=== PATIENT | female | born 1995 | race Caucasian/White ===

== ENCOUNTER 2020-10-13 09:54 | Inpatient (IN) | payer OTHER ==
[2020-10-13] VITALS (30 sets, daily range): BP systolic 95–135; BP diastolic 57–98
[~2020-10-13] VITALS: Ht 160 cm; Wt 87.6 kg
[2020-10-13] MEDS ORDERED: PRENTAB9 PO (10:16)
[2020-10-13] MEDS ORDERED: ADV500INH INH (10:16)
[2020-10-13] MEDS ORDERED: ALBU83IN NEB (10:16)
[2020-10-13] MEDS ORDERED: [UNRECOGNIZED DRUG - OTHER] PO (10:16)
[2020-10-13] MEDS ORDERED: PENICILLIN G POTASSIUM IV 5 MU in D5W MINI-BAG PLUS 100 ML IV STA (11:01)
[2020-10-13] MEDS ORDERED: LACTATED RINGER'S 1000 ML IV STA (11:01)
[2020-10-13] MEDS ORDERED: OXYTOCIN DRIP 30 UNITS in IV 1 EA IV PRN (11:05)
[2020-10-13] MEDS ORDERED: LIDOCAINE 1% MDV 20ML VIAL INFIL PRN (11:05)
[2020-10-13] MEDS ORDERED: ONDANSETRON 4MG/2ML VIAL IV PRN ×2 (11:05→20:55)
[2020-10-13] MEDS ORDERED: METHYLERGONOVINE MALEATE 0.2 MG/ML VIAL (J2210) IM PRN (11:05)
[2020-10-13] MEDS ORDERED: diphenhydrAMINE 50MG CAP PO PRN (11:05)
[2020-10-13] MEDS ORDERED: DOCUSATE SODIUM 100MG CAPSULE PO PRN ×2 (11:05→22:50)
[2020-10-13] MEDS ORDERED: OXYTOCIN INJ 10 UNITS/ML VIAL (J2590) IM PRN (11:05)
[2020-10-13] MEDS ORDERED: BETAMETHASONE SOLUSPAN 6MG/ML 5ML VIAL (J0702 PER 3MG) IM SCH (12:00)
[2020-10-13 12:28] LABS: HEMOGLOBIN 10.5 g/dl (12.0-15.5); MEAN CORPUSCULAR HEMOGLOBIN 28.5 pg (27.0-33.0); MEAN CORPUSCULAR HGB CONC 32.8 g/dl (32.0-36.5); MEAN CORPUSCULAR VOLUME 86.7 fl (80.0-96.0); PLATELET COUNT, AUTOMATED 278 10^3/uL (150-450); RED BLOOD COUNT 3.69 10^6/uL (4.00-5.40)
[2020-10-13] MEDS: LR 1,000 ML IV SCH ×2 (12:59→19:59)
[2020-10-13 13:39] LABS: EOSINOPHILS 2 % (0-3); LYMPHOCYTES 13 % (16-44); METAMYELOCYTES 1 % (0-0); MONOCYTES 5 % (0-5); NEUTROPHILS 79 % (28-66); PLATELET ESTIMATE NORMAL (NORMAL)
[2020-10-13 13:53] LABS: APPEARANCE, URINE CLEAR (CLEAR); BACTERIA, URINE AUTO 1+ (NEGATIVE); BILIRUBIN, URINE AUTO NEGATIVE (NEGATIVE); BLOOD, URINE BLOOD 2+ (NEGATIVE); COLOR, URINE COLORLESS (YELLOW); GLUCOSE, URINE (UA) AUTO NEGATIVE (NEGATIVE); KETONE, URINE AUTO NEGATIVE (NEGATIVE); LEUKOCYTE ESTERASE, URINE AUTO NEGATIVE (NEGATIVE); MUCUS, URINE SMALL (NEGATIVE); NITRITE, URINE AUTO NEGATIVE (NEGATIVE); PROTEIN, URINE AUTO NEGATIVE (NEGATIVE); RBC, URINE AUTO 2 /HPF (0-3); SPECIFIC GRAVITY URINE AUTO 1.002 (1.002-1.035); SQUAMOUS EPITHELIAL CELL UR AU 0 /HPF (0-6); UROBILINOGEN, URINE AUTO 0.2 mg/dL (0.0-2.0); WBC, URINE AUTO 0 /HPF (0-3)
[2020-10-13] MEDS ORDERED: LR 1,000 ML IV SCH (14:50)
[2020-10-13] MEDS ORDERED: OXYTOCIN DRIP 30 UNITS in IV 1 EA IV SCH ×2 (14:50→22:50)
[2020-10-13] MEDS: PENICILLIN G POTASSIUM IV 2.5 MU in IV 1 EA IV SCH ×2 (15:46→20:00)
[2020-10-13] MEDS ORDERED: FENTANYL 2MCG/ML ROPIVACAINE 0.2% IN 0.9% NACL 100ML IVBAG As Ordered ONE (19:34)
[2020-10-13] MEDS ORDERED: FENTANYL/ROPIVACAINE/NACL BAG 100 ML EPIDURAL SCH (20:55)
[2020-10-13] MEDS ORDERED: ePHEDrine SULFATE 25 MG/5 ML(5MG/ML) SYRINGE IV PRN (20:55)
[2020-10-13] MEDS ORDERED: EPIDURAL/PCA KEYS XX PRN (20:55)
[2020-10-13] MEDS ORDERED: LACTATED RINGER'S 1000 ML IV PRN (20:55)
[2020-10-13] MEDS ORDERED: NALOXONE INJ 0.4MG/1ML VIAL (J2310 PER 1MG) IV PRN (20:55)
[2020-10-13] MEDS ORDERED: REFRIGERATOR IV KEYS XX PRN (20:55)
[2020-10-13] MEDS ORDERED: EPIDURAL COMMENT XX SCH (20:55)
[2020-10-13] MEDS ORDERED: diphenhydrAMINE 50MG/ML VIAL (J1200) IV PRN (20:55)
[2020-10-13] MEDS ORDERED: IBUPROFEN 600MG TAB PO PRN (22:50)
[2020-10-13] MEDS ORDERED: MEASLES,MUMPS,RUBELLA VACCINE INJ (MMR-II) (90707) SC SCH (22:50)
[2020-10-13] MEDS ORDERED: DIBUCAINE 1% OINTMENT 30GM TOP PRN (22:50)
[2020-10-13] MEDS ORDERED: RHOGAM 300 MCG (1500 IU) INJ (J2790) IM SCH (22:50)
[2020-10-13] MEDS ORDERED: METHYLERGONOVINE MALEATE 0.2 MG TAB PO PRN (22:50)
[2020-10-13] MEDS ORDERED: ACETAMINOPHEN TAB 650MG DOSE (2X325MG) PO PRN (22:50)
[2020-10-13] MEDS ORDERED: AMPICILLIN SOD/SULBACTAM SOD 3 GM in D5W MINI-BAG PLUS 100 ML IV ONE (22:55)
[2020-10-13] MEDS ORDERED: METHYLERGONOVINE MALEATE 0.2 MG/ML VIAL (J2210) IM STA (23:43)
[2020-10-14] VITALS (7 sets, daily range): BP systolic 102–122; BP diastolic 57–81
[2020-10-14] MEDS: ACETAMINOPHEN 500 MG TAB PO PRN ×2 (00:10→09:16)
[2020-10-14] MEDS: IBUPROFEN 800 MG TAB PO PRN ×2 (00:10→17:41)
[2020-10-14 07:24] LABS: BASO # 0.1 10^3/uL (0.0-0.2); BASO % 0.4 % (0.0-1.0); EOS % 0.1 % (0.0-3.0); HEMATOCRIT 34.7 % (36.0-47.0); HEMOGLOBIN 11.3 g/dl (12.0-15.5); LYMPH # 2.2 10^3/uL (1.5-5.0); LYMPH % 6.7 % (24.0-44.0); MEAN CORPUSCULAR HGB CONC 32.6 g/dl (32.0-36.5); MEAN CORPUSCULAR VOLUME 85.9 fl (80.0-96.0); MONO # 2.6 10^3/uL (0.0-0.8); MONO % 8.3 % (2.0-8.0); NEUTROPHILS # 25.8 10^3/uL (1.5-8.5); PLATELET COUNT, AUTOMATED 335 10^3/uL (150-450); RED BLOOD COUNT 4.04 10^6/uL (4.00-5.40)
[2020-10-14 08:11] LABS: WHITE BLOOD COUNT 31.9 10^3/uL (4.0-10.0)
[2020-10-14] MEDS: FLUoxetine 20 MG CAP PO SCH (09:10)
[2020-10-14] MEDS: PRENATAL VITAMINS CHEWABLE TABLET PO SCH (09:10)
[2020-10-15 05:27] VITALS: BP 89/84
[2020-10-15] MEDS: PRENATAL VITAMINS CHEWABLE TABLET PO SCH (10:43)
[2020-10-15] MEDS: FLUoxetine 20 MG CAP PO SCH (10:43)
== END 2020-10-15 13:50 | disposition home or self-care (01) | DRG 560 ==
LOC: M LDO 09:54 → M LDI 11:02 → M OBS 10-14 02:34
PROVIDERS: ADMIT Advanced Practice Midwife; ATTEND Advanced Practice Midwife
PROC: 10E0XZZ Delivery of Products of Conception, External Approach (ICD-10-PCS; principal; 2020-10-13)
DX: O42.013 Preterm premature rupture of membranes, onset of labor within 24 hours of rupture, third trimester (principal); Z3A.33 33 weeks gestation of pregnancy; O99.52 Diseases of the respiratory system complicating childbirth; J45.909 Unspecified asthma, uncomplicated; Z37.0 Single live birth